=== PATIENT | male | born 1975 | race Hispanic/Latino ===

== ENCOUNTER 2018-05-14 12:02 | Inpatient (IN) | payer OTHER ==
[2018-05-14 13:00] LABS: #Basophils 0.2 thou/uL (0.0-0.2); #Eosinphils 0.2 thou/uL (0.0-0.7); #Lymphocytes 1.7 thou/uL (1.20-3.40); #Neutrophils 6.4 thou/uL (1.40-6.50); %Basophils 1.8 % (0.0-1.0); %Eosinophils 1.9 % (0.0-10.0); %Lymphocytes 18.1 % (21.0-51.0); %Monocytes 10.6 % (0.0-10.0); %Neutrophils 67.6 % (42.0-75.0); Hemoglobin 13.8 g/dL (14.0-18.0); Mean Corpuscular Hemoglobin 29.7 pg (27.0-31.0); Mean Corpuscular Volume 87.6 fL (78.0-98.0); Platelet Count 248 thou/uL (130-400); RBC Distribution Width 10.6 % (11.5-14.5); Red Blood Cell (RBC) Count 4.64 mill/uL (4.70-6.10); White Blood Cell (WBC) Count 9.5 thou/uL (4.8-10.8)
[2018-05-14 13:12] LABS: ALT (SGPT) 37 U/L (8-55); AST (SGOT) 22 U/L (5-34); Albumin 3.8 g/dL (3.5-5.0); Alkaline Phosphatase 86 U/L (40-150); Anion Gap 12 mmol/L (10-20); BUN (Urea Nitrogen) 10 mg/dL (8.9-20.6); Bilirubin, Total 0.5 mg/dL (0.2-1.2); Calc. Creatinine Clearance 0 mL/min (70-130); Calcium 9.4 mg/dL (7.8-10.44); Carbon Dioxide 25 mmol/L (22-29); Chloride 106 mmol/L (98-107); Estimated GFR-MDRD Greater than 90; Globulin 4.1 g/dL (2.4-3.5); Glucose 107 mg/dL (70-105); Potassium 4.2 mmol/L (3.5-5.1); Protein, Total 7.9 g/dL (6.0-8.3); Sodium 139 mmol/L (136-145)
[2018-05-14] MEDS ORDERED: Morphine 4 MG/ML VIAL ONE (13:20)
[2018-05-14] MEDS ORDERED: Ondansetron PF 4 MG/2 ML Vial ONE (13:20)
[2018-05-14] MEDS ORDERED: Sodium Chloride 0.9% 100 ML ONE (13:24)
[2018-05-14] MEDS ORDERED: Piperacillin/Tazobactam 4.5 GM VIAL ONE (13:24)
[2018-05-14] MEDS ORDERED: Clindamycin/D5W 900 mg/50 ml Premix Bag ONE (14:31)
--- NOTE | 2018-05-14 15:14 | RAD ---
FOUR VIEW LEFT KNEE: 05/14/18 CLINICAL HISTORY: Abscess. Infection. FINDINGS: There is no acute fracture or dislocation of the left knee. Joint compartments are maintained. Mild joint capsular distention of the partially imaged suprapatellar bursa is present. There is subtle cortical effacement suggested at the lateral tibial plateau on the frontal projection . IMPRESSION: 1. No acute fracture or dislocation. 2. Subtle cortical effacement is suggested at the lateral tibial plateau. The possibility of dev eloping osteomyelitis in this region is not excluded. Recommend followup with MRI pre and postcontra st of the left knee. POS: [facility]
[2018-05-14] MEDS ORDERED: HYDROcodone/Acetaminophen 5/325 mg Tablet PO PRN (16:08)
[2018-05-14 16:38] VITALS: BMI 25.7
--- NOTE | 2018-05-14 16:39 | PDOC.FPRHP ---
- History of Present Illness Chief Complaint: worsening redness and pain of left leg History of Present Illness: 43 yo M with 1 week ago started with spot size of mosquito bite that he originally thought was a piece of glass after working on his knees. Given rocephin IM and bactrim PO given at clinic on Monday. Symptoms worsened and this morning started draining purulent fluid at original bite site. Denies fever. Reports chills/night sweats. Taking tylenol and ibuprofen at home with mild relief. Reports erythema, warmth to L knee that has been getting worse. Able to bend knee and ambulate. ED Course: Given vanc, zosyn, clinda. - Allergies/Adverse Reactions Allergies Allergy/AdvReac Type Severity Reaction Status Date / Time No Known Allergies Allergy Unverified 05/14/18 16:07 - Home Medications Medication Instructions Recorded Confirmed Type No Known 05/14/18 05/14/18 History - History PMHx: Seasonal allergies PSHx: tonsillectomy 2003, hernia umbilical 2013, sinus 2011 FHx: Mom-HTN, CVA Social: Drinks 3-4 drinks of alcohol every other day. Denies tobacco or drug use. - Review of Systems General: reports: fever/chills (chills), weight/appetite/sleep changes ( decreased appetite) ENT: denies: nasal congestion, rhinorrhea Respiratory: denies: cough, shortness of breath Cardiovascular: denies: chest pain, palpitation Gastrointestinal: reports: constipation. denies: nausea, vomiting, diarrhea Genitourinary: denies: incontinence, dysuria Skin: reports: lesions. denies: rashes Musculoskeletal: reports: pain, swelling Neurological: denies: syncope, weakness - Vital signs BP: 136/90 HR: 104 Tmax: 98.3 Pox: 100% on RA Wt: 83 - Physical Exam Constitutional: NAD, awake, alert and oriented HEENT: normocephalic and atraumatic Neck: FROM, trachea midline Heart: RRR, normal S1/S2, no murmurs/rubs/gallops Lungs: CTAB, no respiratory distress Abdomen: soft, non-tender, bowel sounds present Musculoskeletal: normal structure, normal tone -Musculoskeletal: Full ROM in L knee, presence of pulse. Swelling extending from ankle to above left knee. Open wound with serosanguinous drainage at left lateral knee. No fluctuance palpated. Neurological: no focal deficit Skin: good turgor -Heme/Lymphatic: LLE cellulitis Psychiatric: normal mood and affect FMR H&P: Results - Labs Result Diagrams: 05/14/18 12:50 05/14/18 12:50 Lab results: WBC 9.5 thou/uL (4.8-10.8) 05/14/18 12:50 Hgb 13.8 g/dL (14.0-18.0) L 05/14/18 12:50 Hct 40.6 % (42.0-52.0) L 05/14/18 12:50 MCV 87.6 fL (78.0-98.0) 05/14/18 12:50 Plt Count 248 thou/uL (130-400) 05/14/18 12:50 Neutrophils % 67.6 % (42.0-75.0) 05/14/18 12:50 Sodium 139 mmol/L (136-145) 05/14/18 12:50 Potassium 4.2 mmol/L (3.5-5.1) 05/14/18 12:50 Chloride 106 mmol/L (98-107) 05/14/18 12:50 Carbon Dioxide 25 mmol/L (22-29) 05/14/18 12:50 BUN 10 mg/dL (8.9-20.6) 05/14/18 12:50 Creatinine 0.87 mg/dL (0.7-1.3) 05/14/18 12:50 Glucose 107 mg/dL (70-105) H 05/14/18 12:50 Lactic Acid 1.2 mmol/L (0.5-2.2) 05/14/18 12:50 Calcium 9.4 mg/dL (7.8-10.44) 05/14/18 12:50 Total Bilirubin 0.5 mg/dL (0.2-1.2) 05/14/18 12:50 AST 22 U/L (5-34) 05/14/18 12:50 ALT 37 U/L (8-55) 05/14/18 12:50 Alkaline Phosphatase 86 U/L (40-150) 05/14/18 12:50 Serum Total Protein 7.9 g/dL (6.0-8.3) 05/14/18 12:50 Albumin 3.8 g/dL (3.5-5.0) 05/14/18 12:50 FMR H&P: A/P - Problem List (1) Cellulitis of left lower extremity Current Visit: Yes Status: Acute Code(s): L03.116 - CELLULITIS OF LEFT LOWER LIMB - Plan 43 yo M with LLE cellulitis with failed outpatient therapy. Left lower leg cellulitis with failed outpatient therapy -Failed to rocephin & bactrim -Wound culture at urgent care (05/11) grew MRSA sensitive to Clindamycin & Vanc -Will continue IV Clinda & Vanc -Only SIRS criteria met was tachycardia w/ pulse of 104, blood cultures pending -Leg Xray mentioned concern for osteo, will order LLE MRI to r/o -Obtain ESR and procal -Toradol PRN for pain dvt ppx: c/i due to cellulitis gi ppx: not indicated dispo: r/o osteomyelitis. can consider transition to po meds once improved on IV meds. discussed with dr. rodríguez FMR H&P: Upper Level - Pertinent history 43 yo HM with no reported PMH presenting with worsening left lower extremity pain, redness, and swelling. Pt was seen at urgent care on Monday for what started out as bug bite and worsened. Pt had culture of purulent drainage at that time, XR, and was given Rocephin IM and rx for Bactrim. Pt notes worsening in symptoms since then along with some decreased PO intake and limited ROM. Pt was evaluated at [facility] and transferred for admission. - Pertinent findings Gen: well developed in NAD CV: RRR, no murmurs Resp: nonlabored, CTAB Abd: BS+, soft, NTTP Ext: LLE swelling and erythema marked with marker, warm to touch, good ROM left knee, no obvious effusion - Plan Date/Time: 05/14/18 1632 I, Troy Taveras MD PGY3, have evaluated this patient and agree with findings/ plan as outlined by automotive internet sales manager resident. Pertinent changes/additions are listed here. 1. Left lower extremity cellulitis 2/2 MRSA -Pt presents for worsening cellulitis that has failed outpatient management. Wound culture obtained on 05/11 reveals MRSA sensitive to vancomycin and clindamycin. -Knee XR obtained at [facility] showed concern for bone involvement. Obtain ESR and order left leg MRI. Check procalcitonin. -Continue vancomycin and clindamycin for toxin binding properties. -IVF with LR@125. -Symptomatic pain medication. FULL code PPx: SCDs for VTE, no GI indicated disposition: Admit to inpatient medical for anticipated length of stay greater than two midnights, pending clinical course. Attending Addendum - Attending Addendum Date/Time: 05/14/18 3412 I personally evaluated the patient and discussed the management with Dr. Olson I agree with the History, Examination, Assessment and Plan documented above with any addition or exceptions noted below- 43 yo male with no significant PMH presents with redness, pain, swelling over left lower extremity. Patient reports that he may have had a bug bite that he itched or he had been working on his knees on rough surface when he noticed an area of pain and redness below his left knee 1 week ago. Area increased insize and began to drain pus on Monday so patient went to Urgent care and was diagnosed with cellulitis and started on Bactrim. Patient reports that he has been taking the medication as directed but area of redness has continued to increase in size and pain. PMH/PSH /ALL/Meds reviewed and agree with residents documentation. Afebrile VSS Exam repeated by meand agree with residents documentation. Labs: WBC=9.5. Xray concerning for possible area of osteomyelitis over anterior tibia. Wound culture - MRSA. A/P: 1) Cellulitis secondary to MRSA failed outpatient therapy- admit to medical. Continue vancomycin. Monitor trough. Will ontain MRI of area due to concern for osteomyelitis from plain film.
[2018-05-14] MEDS: HYDROcodone/Acetaminophen 5/325 mg Tablet PO PRN ×2 (17:09→23:15)
[2018-05-14] MEDS: Piperacillin/Tazobactam 3.375 GM in Sodium Chloride 0.9% 100 ML IVPB SCH ×2 (17:47→23:13)
[2018-05-14] MEDS ORDERED: Docusate 100 MG CAP PO PRN (18:01)
[2018-05-14] MEDS ORDERED: Ketorolac Tromethamine 30 MG/ML VIAL IVP PRN (18:06)
[2018-05-14] MEDS: Lactated Ringer's 1,000 ML IV SCH (18:08)
[2018-05-14] MEDS: Vancomycin HCl 1.25 GM in Sodium Chloride 0.9% 250 ML 300 ML IVPB SCH (21:47)
[2018-05-14] MEDS ORDERED: Clindamycin/D5W 900 MG in Premix Bag 1 BAG IVPB SCH (22:00)
[2018-05-15] MEDS: Lactated Ringer's 1,000 ML IV SCH ×3 (03:06→19:19)
[2018-05-15] MEDS: Clindamycin/D5W 900 MG in Premix Bag 1 BAG IVPB SCH ×3 (05:37→16:50)
[2018-05-15] MEDS: Vancomycin HCl 1.25 GM in Sodium Chloride 0.9% 250 ML 300 ML IVPB SCH (05:37)
[2018-05-15] MEDS ORDERED: Piperacillin/Tazobactam 3.375 GM in Sodium Chloride 0.9% 100 ML IVPB SCH (06:00)
--- NOTE | 2018-05-15 08:21 | PDOC.FM ---
- Subjective Subjective: No acute events overnight. Reports improvement in pain and redness. Able to tolerate meals. Denies fevers, chills. - Objective MAR Reviewed: Yes Vital Signs & Weight: Vital Signs (12 hours) Temp Pulse Resp BP Pulse Ox 05/15/18 07:55 98.1 F 68 16 129/82 98 05/15/18 04:32 98.2 F 73 18 110/70 94 L 05/15/18 00:23 98.1 F 80 16 130/72 97 Weight Weight 83.461 kg I&O: 05/14/18 05/15/18 05/16/18 06:59 06:59 06:59 Intake Total 2490 Balance 2490 Result Diagrams: 05/15/18 08:33 05/14/18 12:50 Phys Exam - Physical Examination Constitutional: NAD HEENT: moist MMs, sclera anicteric Respiratory: no wheezing, no rales, clear to auscultation bilateral Cardiovascular: RRR, no significant murmur Musculoskeletal: pulses present Erythema decreased from prior marking at outside facility. Mild tenderness to palpation. Non-pitting edema. Neurological: moves all 4 limbs Able to bend knee Psychiatric: normal affect, A&O x 3 Dx/Plan (1) Cellulitis of left lower extremity Code(s): L03.116 - CELLULITIS OF LEFT LOWER LIMB Status: Acute - Plan Plan: 43 yo M with LLE cellulitis with failed outpatient therapy. Left lower leg cellulitis with failed outpatient therapy -Failed to rocephin & bactrim -Wound culture at urgent care (05/11) grew MRSA sensitive to Clindamycin & Vanc -Will continue IV Clinda & Vanc -Vitals stable overnight -ESR 45, procal .04 -Toradol PRN & norco 5 PRN for pain -Pending MRI today dvt ppx: SCD c/i due to cellulitis, pharmaco ppx not indicated (Rach 3) gi ppx: not indicated dispo: stable. r/o osteomyelitis. can consider transition to po meds once improved on IV meds. discussed with dr. vaca
[2018-05-15 08:48] LABS: #Eosinphils 0.3 thou/uL (0.0-0.7); #Lymphocytes 1.4 thou/uL (1.20-3.40); #Monocytes 0.8 thou/uL (0.11-0.59); #Neutrophils 3.5 thou/uL (1.40-6.50); %Basophils 0.4 % (0.0-1.0); %Eosinophils 4.5 % (0.0-10.0); %Lymphocytes 23.1 % (21.0-51.0); %Monocytes 13.5 % (0.0-10.0); %Neutrophils 58.5 % (42.0-75.0); Hemoglobin 13.9 g/dL (14.0-18.0); Mean Corpuscular HGB CONC 34.5 g/dL (32.0-36.0); Mean Corpuscular Hemoglobin 31.5 pg (27.0-31.0); Mean Corpuscular Volume 91.3 fL (78.0-98.0); Mean Platelet Volume 7.6 fL (7.4-10.4); Platelet Count 316 thou/uL (130-400); RBC Distribution Width 10.8 % (11.5-14.5); Red Blood Cell (RBC) Count 4.43 mill/uL (4.70-6.10)
[2018-05-15 09:00] LABS: Anion Gap 10 mmol/L (10-20); BUN (Urea Nitrogen) 9 mg/dL (8.9-20.6); Calc. Creatinine Clearance 137 mL/min (70-130); Calcium 8.8 mg/dL (7.8-10.44); Carbon Dioxide 24 mmol/L (22-29); Chloride 106 mmol/L (98-107); Estimated GFR-MDRD Greater than 90; Glucose 98 mg/dL (70-105); Potassium 4.2 mmol/L (3.5-5.1); Sodium 136 mmol/L (136-145)
[2018-05-15] MEDS: HYDROcodone/Acetaminophen 5/325 mg Tablet PO PRN ×2 (10:56→16:50)
--- NOTE | 2018-05-15 12:10 | PRG ---
DATE OF SERVICE: 05/15/2018 Mr. Bowden was admitted with a cellulitis of his left knee area, not involving the joint. He looks and feels much better this morning. He is currently afebrile with normal vital signs. We will cont inue with vancomycin which was growing from the wound/cellulitis.
[2018-05-15 13:23] LABS: Vancomycin, Trough 12.4 ug/mL
--- NOTE | 2018-05-15 14:12 | MRI ---
MR OF THE LEFT LOWER EXTREMITY WITH AND WITHOUT IV CONTRAST: History: Concern for abscess. Technique: Multiplanar multisequence MR images were obtained of the left knee and proximal left forel eg with and without contrast utilizing 17 cc of MultiHance. FINDINGS: There is a 5.2 x 4.2 cm peripherally enhancing fluid collection in the subcutaneous tissues anterior to the proximal tibia and tibial tuberosities suspicious for abscess. This appears to communicate wit h the skin surface. There is surrounding cellulitis. No definite osteomyelitis is evident. No septic arthritis is grossly evident. There is a horizontally oriented tear involving the body and posterior horn of the medial meniscus and there is a parameniscal cyst seen along the posterior projection of t he medial meniscus measuring 3 mm on Image 8 of Series 6. The lateral meniscus is intact. The ACL, PC L, MCL, and LCLC appear intact. The extensor mechanism is intact. IMPRESSION: 1. Anterior proximal foreleg subcutaneous abscess with surrounding cellulitis. 2. Medial meniscal tear with associated parameniscal cysts. POS: [facility]
[2018-05-15] MEDS ORDERED: Morphine 4 MG/ML VIAL ONE (18:26)
[2018-05-15] MEDS ORDERED: Morphine 2 MG/ML SYRINGE SLOW IVP SCH (18:30)
[2018-05-15 19:39] VITALS: BP 112/68; TEMP 98.1
--- NOTE | 2018-05-16 06:25 | DIS ---
DATE OF ADMISSION: 05/14/2018 DATE OF DISCHARGE: 05/15/2018 ADMITTING ATTENDING: Debbie Soriano MD DISCHARGE ATTENDING: Anjum Kay MD CONSULTS: None. PROCEDURES: None. PRIMARY DIAGNOSIS: Left lower extremity cellulitis and abscess secondary to MRSA with failed outpatient treatment. DISCHARGE MEDICATION: Clindamycin 450 mg p.o. q.6 hours for 10 days. HOSPITAL COURSE: Mr. Ramesh Bowden is a 43-year-old pleasant male who presented as a direct admit from [facility] due to left lower leg cellulitis secondary to MRSA after failed outpatient treatments on Rocephin and Bactrim. The patient stated that he had formation of a mosquito bite that did not improve prompting visit to the ED. The patient never exhibited any systemic signs nor did lab work show this as well. However, MRI was confirmed to rule out osteomyelitis since depth of involvement could not be gauged clinically. MRI showed left lower extremity anterior proximal foreleg subcutaneous abscess 5.2 x 4.2 cm with surrounding cellulitis but no osteomyelitis. Abscess was drained and packed appropriately by Wound Care Team. The patient's cellulitis improved with clindamycin and wound care. DISPOSITION: Stable. DISCHARGE INSTRUCTIONS: 1. Location, to home. 2. Diet, regular diet. 3. Activity, ad nick. 4. Followup, please follow up with Dr. Alejandro in 1 to 2 days. Job ID: [id number]
== END 2018-05-15 20:03 | disposition home or self-care (01) | DRG 603 ==
LOC: SCSER 12:02 → T4-B 16:23
PROVIDERS: ADMIT Family Medicine; ATTEND Family Medicine
DX: L03.116 Cellulitis of left lower limb (principal); L02.416 Cutaneous abscess of left lower limb; B95.62 Methicillin resistant Staphylococcus aureus infection as the cause of diseases classified elsewhere
CPT/HCPCS: 36415; 80048; 80053; 80202; 83605; 84145; 85025; 85652; 87040; 87070; 87077; 87186; 87205; 96365; 96367; 96375; J1885; J2270; J2405; J2543; J3370; J3490; J7050